=== PATIENT | female | born 1975 | race African-American/Black ===

== ENCOUNTER 2019-03-23 15:14 | Inpatient (IN) | payer OTHER ==
[~2019-03-23] VITALS: Ht 167.6 cm; Wt 52.3 kg
[~2019-03-23 15:14] MED LIST: ASPIR 8181 MG PO; ATIVAN1 MG PO; ATORVASTATIN CA40 MG PO; CARDIZEM CD240 MG PO; ELIQUIS5 MG PO; FEROSUL325 M1 PO; KEPPRA 500 MG500 M1 PO; KEPPRA250 MG PO; PRENATAL 19 TA1 EAC1 PO; VIMPAT50 MG PO; ZANAFLEX2 MG PO
[2019-03-23 15:16] VITALS: BP 132/83
[2019-03-23 16:00] LABS: HEMATOCRIT 49.6 % (37.0-47.0); HEMOGLOBIN 16.3 gm/dL (12.0-15.0); MCH 30.8 pg (26.0-34.0); MCHC 32.9 g/dL (28.0-37.0); MCV 93.6 fL (80.0-100.0); RBC 5.3 mil/uL (4.20-5.00); RDW 14.1 % (10.5-14.5); WBC 7.7 thou/uL (4.0-11.0)
[2019-03-23 16:06] LABS: ANION GAP 12 mmol/L (7-16); BUN 11 mg/dL (7-18); CALCIUM 9.9 mg/dL (8.5-10.1); CHLORIDE 103 mmol/L (98-107); CO2 26 mmol/L (21-32); CREATININE 0.8 mg/dL (0.6-1.0); GLUCOSE 147 mg/dL (74-106); POTASSIUM 4.1 mmol/L (3.5-5.1); SODIUM 141 mmol/L (136-145)
[2019-03-23] MEDS ORDERED: KEPPRA 500 MG500 MG PO (16:12)
[2019-03-23 16:13] LABS: APTT 27.8 Seconds (24.5-32.8); INR 1.4; PROTIME 14.2 Seconds (9.3-11.4)
[2019-03-23 16:14] LABS: TROPONIN-I <0.06 ng/mL (<0.06)
[2019-03-23 16:53] LABS: URINE BILIRUBIN NEGATIVE (Negative); URINE BLOOD NEGATIVE (Negative); URINE CLARITY CLEAR; URINE COLOR YELLOW; URINE GLUCOSE-RANDOM* NEGATIVE (Negative); URINE KETONES 1+ (Negative); URINE LEUKOCYTES-REFLEX NEGATIVE (Negative); URINE NITRITE-REFLEX NEGATIVE (Negative); URINE PROTEIN (DIPSTICK) 2+ (Negative); URINE SPECIFIC GRAVITY >= 1.030 (1.005-1.035); URINE UROBILINOGEN 0.2 E.U./dl (0.2-1.0)
[2019-03-23 17:04] LABS: BACTERIA-REFLEX None Seen /HPF (None Seen); CASTS None Seen /LPF (None Seen); CRYSTALS None Seen /LPF (None Seen); MUCUS 4-6 Moderate strn/LPF (None Seen); SQUAMOUS 0-3 Few /LPF (0-3); URINE RBC 0-2 Rare /HPF (0-2); URINE WBC-REFLEX 0-5 Rare /HPF (0-5)
[2019-03-23 18:23] VITALS: BP 114/78
[2019-03-23] MEDS ORDERED: VIMPAT150 MG PO (18:23)
[2019-03-23] MEDS ORDERED: NEURONTIN 300M300 M2 PO (18:34)
[2019-03-23] MEDS ORDERED: LEXAPRO 10 MG T10 M1 PO (18:35)
[2019-03-23] MEDS ORDERED: CLARITIN10 MG PO (18:35)
[2019-03-23] MEDS ORDERED: BACLOFEN 10MG T10 MG PO (18:36)
[2019-03-23 19:15] VITALS: BP 114/78
[2019-03-23 20:55] VITALS: BP 132/94
[2019-03-24] VITALS (7 sets, daily range): BP systolic 108–132; BP diastolic 68–94
--- NOTE | 2019-03-24 00:07 | H ---
[facility] Lilly [place]ins [place] [place] [address] HISTORY AND PHYSICAL Name: VANDANA HERNANDEZ Room #: 214-P ADM IN M.R.#: [id number] Admission: 03/23/19 Attend Phys: Rancho Stacy MD Discharge: Date of : 71 Report #: [id number] THIS REPORT FOR: //name// CC: Rancho Vogel MD DATE OF SERVICE: 03/23/2019 CHIEF COMPLAINT: Seizures. HISTORY OF PRESENT ILLNESS: The patient is a 43-year-old -[place]atorial [place] female who resides at [facility], whose nurse contacted me today that the patient was having seizures multiple times today. Apparently, she was out of the facility during the holiday and was given medications to take while she was outside the facility and refused to take them. Upon her return, she continued refusing to take her anti-seizure medications and thus the problem worsened. The patient is not able to appropriately reply to any questions and the information obtained was from my conversation with the nurse at the [facility] and in reviewing Dr. Escoto's notes and my conversation with him from the Emergency Room. 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 It appears she may have a history of atrial fibrillation or supraventricular tachycardia and is anticoagulated with Eliquis at this time. MEDICATIONS: Include diltiazem, Vimpat, Eliquis, atorvastatin, vitamins, tizanidine, Keppra, Neurontin, Lexapro, loratadine and baclofen. ALLERGIES: She has no known drug allergies. FAMILY HISTORY: Not obtainable. SOCIAL HISTORY: Also unobtainable except that the patient lives at the [facility] and she has no known vices. REVIEW OF SYSTEMS: Also unobtainable. PHYSICAL EXAMINATION: VITAL SIGNS: In the Emergency Room on arrival show a pulse of 105 beats per minute, temperature of 35.9 degrees centigrade, respirations of 16 per minute on 15 liters per face shield and a pulse oximetry of 87% on arrival. The weight was 110 pounds. GENERAL: The patient on exam is a well-developed, short haired and youthful appearing -[place] female who is not in distress, but is unable to speak [place] [id number] HISTORY AND PHYSICAL Name: VANDANA HERNANDEZ Room #: 214-P [facility] IN M.R.#: [id number] Admission: 03/23/19 Attend Phys: Rancho Stacy MD Discharge: Date of : 71 Report #: [id number] with me. She is able to flutter her eyelids when I requested that she open her eyes. During exam, she actually showed signs that she might be having a petit mal seizure. SKIN: Appears intact. There is no breakdown on the heels from the back. HEENT: The sinuses did not appear tender and hearing appears to be at least partially intact. Oropharynx is dry and pink. No lesions, no exudates. NECK: Without adenopathy or thyromegaly or mass. LUNGS: Clear to auscultation bilaterally. CARDIAC: Reveals tachycardia. ABDOMEN: Soft. Bowel sounds are present and there is no visceromegaly or masses. NEUROLOGIC: She has better than 4+/5 strength in general except for the left side which is quite weak, but not flaccid. On examination of the eyes, she has a leftward gaze deviation. MENTAL STATUS: Could not otherwise be assessed except to note that she responds to her spoken name and commands, but does not maintain wakefulness very well. LABORATORY DATA: EKG shows atrial fibrillation with rapid ventricular response and this is a new finding compared to prior EKG from 12/2017. The basic metabolic panel shows sodium 141, potassium 4.1, chloride of 103, bicarbonate 26, BUN of 11, creatinine 0.8. The anion gap is 12 and normal. The estimated GFR is 94 and the nonfasting glucose is 147. The calcium was 9.9 and the magnesium was 1.6 and low. The serum test was negative. Lactic acid level, venous, was elevated at 2.8, with an upper limits of normal at 2.0. Troponin was less than 0.06. The coagulation studies showed an INR of 1.4, although she is on Eliquis, not on Coumadin. The partial thromboplastin time was normal at 27.8. CBC showed a white blood cell count of 7700, platelet count of 288,000, hemoglobin was 16.3 with hematocrit 49.6 and the red cell indices were normal. Chest x-ray was performed in the Emergency Room, showed basilar infiltrations with consolidation on the left and small bilateral pleural effusions and borderline heart size with possible pulmonary venous congestion. CT scan of the head was done that showed no acute intracranial abnormality and the presence of an old right middle cerebral artery infarction is once again noted. The patient was given intravenous lorazepam as IV fluids and Keppra in the Emergency Room. She was also given intravenous magnesium replacement and after discussing the case with Dr. Escoto, I agreed with admission of the patient for further evaluation and treatment and observation while we reorganize her medications. ASSESSMENT AND PLAN: 1. Recurrent seizures, most likely due to medication noncompliance. I am not sure of the importance of noncompliance long-term this patient. However, her usual primary care physician, Dr. Vogel, will be back tomorrow to continue her care. 2. Atrial fibrillation with rapid ventricular response. I will put the patient [facility] [address] [place] [address] HISTORY AND PHYSICAL Name: VANDANA HERNANDEZ Room #: 214-P ADM IN M.R.#: [id number] Admission: 03/23/19 Attend Phys: Rancho Stacy MD Discharge: Date of : 71 Report #: [id number] on a diltiazem drip tonight and will get a followup EKG and echocardiogram in the morning and serial enzymes to rule out infarction. She may have other reasons for the tachycardia and look at underlying causes is definitely indicated. 3. Possible pneumonia if present likely due to aspiration. We will get a followup chest x-ray in the morning as well. I have reviewed the admission x-ray and will be adding an intravenous antibiotic to start tonight and cultures as well. 4. Thyrotoxicosis history -- the patient had suppressed TSH several times in the last few years when hospitalized at [facility]. This could certainly bear relation to atrial fibrillation if present. I will obtain TSH and free T4. I note that the patient is not on any thyroid hormone replacement therapy, but I am suspicious that she might benefit from treatment of her thyroid issues if they persist, with Tapazole or PTU. I will defer to Dr. Vogel the workup, if needed and would await the thyroid functions test results before proceeding further with ultrasound and/or thyroid scan. Propranolol may be useful if thyroid storm is suspected. 5. Hyperlipidemia. Continue current medications. 6. Depression -- Lexapro therapy. We will continue that. <ELECTRONICALLY SIGNED> By: Rancho Stacy MD 03/24/197 2308 Rancho Stacy MD /nt
[2019-03-24 04:09] LABS: HEMATOCRIT 46.1 % (37.0-47.0); HEMOGLOBIN 14.8 gm/dL (12.0-15.0); MCH 30.2 pg (26.0-34.0); MCHC 32.1 g/dL (28.0-37.0); MCV 93.9 fL (80.0-100.0); RBC 4.91 mil/uL (4.20-5.00); WBC 12.7 thou/uL (4.0-11.0)
[2019-03-24 04:33] LABS: CALCIUM 9.7 mg/dL (8.5-10.1); CREATININE 0.9 mg/dL (0.6-1.0); POTASSIUM 4.1 mmol/L (3.5-5.1); TROPONIN-I 0.06 ng/mL (<0.06)
--- NOTE | 2019-03-24 05:48 | NUR ---
ASSUMED PT CARE FROM ER AT 1999. VSS, PT WAS QUITE LETHARGIC. HOWEVER, MENTATION SLIGHTLY IMPROVED THROUGH THE NIGHT SHE BECAME MORE AWAKE, AND FOLLOWED SIMPLE COMMANDS AT TIMES. PT EVIDENTLY HAS EXPRESIVE APHASIA, IT WAS A LITTLE CHALLENGING UNDERSTANDING HER. PT IS REQUESTING ICE WATER BUT THERE ARE NO DIET ORDERS YET OR SWALLOW EVALS DONE SO NONE WAS GIVEN HOWEVER PT IS ON IV FUIDS. FALL PRECAUTIONS IN PLACE. PT IN BED Q2 TURNS ALLOWED, PT ON CARDIZEM 15ML/HR, RATE CONTROLLED NOW (<100). PT IS STABLE, WILL CONTINUE TO MONITOR PER POC.
--- NOTE | 2019-03-24 08:13 | EKG ---
[address] [address] ELECTROCARDIOGRAM REPORT Name: VANDANA HERNANDEZ Room #: 214-P ADM IN M.R.#: [id number] Admission: 03/23/19 Attend Phys: Rancho Stacy MD Discharge: Date of : 71 Report #: [id number] THIS REPORT FOR: //name// [facility] ED Test Date: 2019-03-23 Test Time: 16:03:34 Pat Name: VANDANA HERNANDEZ Department: Room: 214 Gender: F Tar Pot Man: JSJAD : 1975 Requested By: Moris Everett Order Number: [id number] MD: Wade Jaramillo Measurements Intervals [place] Rate: 111 P: SD: QRS: 145 QRSD: 105 T: -5 QT: 352 QTc: 479 Interpretive Statements Atrial fibrillation Low voltage, precordial leads Probable right ventricular hypertrophy Lateral infarct, age indeterminate Compared to ECG 01/04/2018 07:51:11 Sinus rhythm no longer present First degree AV block no longer present Right-axis deviation no longer present Myocardial infarct finding still present Electronically Signed On 03-24-2019 8:13:16 ASBESTOS SHINGLE INSPECTOR by Wade Jaramillo [email or web address] <ELECTRONICALLY SIGNED> By: Wade Jaramillo MD 03/24/19 0813 1603 160 Wade Jaramillo MD /EPI
--- NOTE | 2019-03-24 15:45 | 2DMMODE ---
[facility] [address] [place] [address] 2 D/M-MODE ECHOCARDIOGRAM Name: VANDANA HERNANDEZ Room #: 214-P ADM IN .R.#: [id number] Admission: 03/23/19 Attend Phys: Rancho Stacy MD Discharge: Date of : 71 Report #: [id number] THIS REPORT FOR: //name// APPROVED REPORT Study performed: 03/24/2019 14:21:06 EXAM: Comprehensive 2D, Doppler, and color-flow Echocardiogram Patient Location: Bedside Room #: 214 Status: routine BSA: 1.55 HR: 80 bpm BP: 132/94 mmHg Rhythm: Atrial Fibrillation Other Information Study Quality: Adequate Indications Pulmonary Hypertension Atrial Fibrillation CAD Elevated Troponin ESRD Seizures 2D Dimensions IVSd: 13.81 (7-11mm) LVOT Diam: 15.00 (18-24mm) LVDd: 35.28 mm PWd: 16.41 (7-11mm) Ascending Ao: 24.58 (22-36mm) LVDs: 29.79 (25-40mm) Aortic Root: 22.98 mm LV Single Plane 4CH: 32.98 % LV Single Plane 2CH: 44.67 % Biplane EF: 38.0 % Volumes Left Atrial Volume (Systole) Single Plane 4CH: 60.40 mL Single Plane 2CH: 72.69 mL LA ESV Index: 49.00 mL/m2 Aortic Valve AoV Peak Uday.: 1.33 m/s AO Peak Gr.: 7.90 mmHg LVOT Max P.98 mmHg [facility] [address] [place] [address] 2 D/M-MODE ECHOCARDIOGRAM Name: VANDANA HERNANDEZ Room #: 214-P ADM IN .R.#: [id number] Admission: 03/23/19 Attend Phys: Rancho Stacy MD Discharge: Date of : 71 Report #: [id number] LVOT Max V: 0.70 m/s FIDE Vmax: 0.94 cm2 Pulmonary Valve PV Peak Uday.: 0.86 m/s PV Peak Gr.: 2.99 mmHg OK End Vmax: 1.54 m/s Tricuspid Valve TR Peak Uday.: 2.78 m/s RAP Estimate: 10.00 mmHg TR Peak Gr.: 30.81 mmHg PA Pressure: 41.00 mmHg Left Ventricle The left ventricle is normal size. There is global hypokinesis of the left ventricle. Moderate to severe concentric left ventricular hypertrophy. Left ventricular systolic function is moderately decreased. LVEF is 35-40%. This study is not technically sufficient to allow evaluation of the LV diastolic function due to atrial fibrillation. Right Ventricle The right ventricle is normal size. Right ventricle is hypokinetic. Atria Left atrium is severely dilated. Right atrium is severely dilated. Aortic Valve The aortic valve is normal in structure. No aortic regurgitation is present. There is no aortic valvular stenosis. Mitral Valve The mitral valve is normal in structure. Mild to moderate mitral regurgitation. No evidence of mitral valve stenosis. Tricuspid Valve The tricuspid valve is normal in structure. Moderate tricuspid regurgitation. Pulmonary artery pressure is 41 mmHg. Pulmonic Valve The pulmonary valve is normal in structure. Moderate pulmonic regurgitation. Great Vessels The aortic root is normal in size. The ascending aorta is normal in [facility] [address] [place] [address] 2 D/M-MODE ECHOCARDIOGRAM Name: VANDANA HERNANDEZ Room #: 214-P [facility] IN ..#: [id number] Admission: 03/23/19 Attend Phys: Rancho Stacy MD Discharge: Date of : 71 Report #: [id number] size. IVC is dilated and collapses >50% with inspiration. Pericardium Small to moderate pericardial effusion. No echo indications of pericardial tamponade. <Conclusion> The left ventricle is normal size. There is global hypokinesis of the left ventricle. LVEF is 35-40%. Left atrium is severely dilated. Right atrium is severely dilated. The aortic valve is normal in structure. The mitral valve is normal in structure. Mild to moderate mitral regurgitation. The tricuspid valve is normal in structure. Moderate tricuspid regurgitation. Pulmonary artery pressure is 41 mmHg. Small to moderate pericardial effusion. No echo indications of pericardial tamponade. <ELECTRONICALLY SIGNED> By: Troy Newton MD 03/24/19 1545 1545 1545 Troy Newton MD /INF
--- NOTE | 2019-03-24 19:33 | NUR ---
ASSUMED CARE AT 0700, SHIFT ASSESSMENT DONE, MEDS GIVEN, VSS. PT A&O TO SELF, EXPRESSIVE APHASIA. INCONTINENT OF BOWEL AND BLADDER. ON DILTIAZEM DRIP, RUNNING AT 10 MLS/HR. HAD A SPEECH EVAL TODAY, STARTED ON PUREED DIET. AFIB, RATE CONTROLLED ON THE MONITOR. WILL CONTINUE TO ASSESS AND ASSIST WITH ADLs NEEDED.
[2019-03-25 04:36] LABS: HEMATOCRIT 42.7 % (37.0-47.0); HEMOGLOBIN 14.3 gm/dL (12.0-15.0); MCH 31.2 pg (26.0-34.0); MCHC 33.4 g/dL (28.0-37.0); MCV 93.3 fL (80.0-100.0); RBC 4.58 mil/uL (4.20-5.00); WBC 10.2 thou/uL (4.0-11.0)
[2019-03-25 05:39] VITALS: BP 111/84
--- NOTE | 2019-03-25 05:49 | NUR ---
ASSESSMENTS CHARTED. MEDS GIVEN CHARTED. PATIENT RESTING IN BED DURING SHIFT. A CLOSE FRIEND WAS FEEDING HER DURING ROUNDS. PATIENT HAS EXPRESSIVE APHASIA. AFIB ON TELEMETRY DURING SHIFT. LUNGS STARTED CLEAR OVER DIMINISHED. DURING SHIFT HER LUNGS BECAME COARSE AND SHE HAD TROUBLE BREATHING. HER IV FLUIDS WERE STOPPED AND LASIX WAS GIVEN. CXR WAS TAKEN. DUE TO VIDEO SWALLOW RESULTS SHE WAS PUT ON A PUREED DIET WITH NECTUR THICK FLUIDS. PATIENT GETS AROUND IN A WHEEL CHAIR NORMALLY WHEN SHE IS AT [facility]. NO SKIN ISSUES. DENIED PAIN.
[2019-03-25 08:06] VITALS: BP 119/83
--- NOTE | 2019-03-25 08:41 | EKG ---
[address] [address] ELECTROCARDIOGRAM REPORT Name: DAVIDVANDANA Room #: 214-P ADM IN M.R.#: [id number] Admission: 03/23/19 Attend Phys: Ck Vogel MD Discharge: Date of : 71 Report #: [id number] THIS REPORT FOR: //name// [facility] Test Date: 2019-03-24 Test Time: 09:19:19 Pat Name: VANDANA HERNANDEZ Department: Room: 214 P Gender: F Liquefaction And Regasification Helper: Crispin GLASS : 1975 Requested By: Rancho Stacy Order Number: [id number] MD: Wade Jaramillo Measurements Intervals [place] Rate: 93 P: VA: QRS: 137 QRSD: 83 T: -59 QT: 417 QTc: 519 Interpretive Statements Atrial fibrillation Low voltage, extremity leads Probable right ventricular hypertrophy Abnormal lateral Q waves Compared to ECG 03/23/2019 16:03:34 Q waves now present Myocardial infarct finding no longer present Electronically Signed On 03-25-2019 8:41:27 GEOLOGICAL TECHNICAL OFFICER by Wade Jaramillo [email or web address] <ELECTRONICALLY SIGNED> By: Wade Jaramillo MD 03/25/19 0841 8 8 Wade Jaramillo MD /EPI
--- NOTE | 2019-03-25 10:43 | NUR ---
PT RESIDES AT [facility] FAXED CLINICAL UPDATE TO FACILITY RECEIVED CONFIRMATION ADN SPOKE WITH KAIN AND SHE RECEIVED UPDATE. DP TO FOLLOW.
[2019-03-25 11:44] VITALS: BP 134/87
--- NOTE | 2019-03-25 13:15 | NUR ---
Spoke with admissions at [facility]. Sp with dtr [place] Do, plan dc to [facility] once medically stable. Dtrs number [phone]. [email or web address] following with plan return to [facility] once stable.
[2019-03-25 17:07] VITALS: BP 132/88
--- NOTE | 2019-03-25 18:54 | NUR ---
ASSUMED CARE 0700. ALERT X3, DENIES PAIN, EXPRESIVE DISPHASIA, SET UP WITH MEALS. PILLS GIVEN WITH YOGURT OR PUDDING. INCONTNENT OF BOWEL AND BLADDER TODAY. HAS NOT USED CALL LIGHT THIS SHIFT. STAFF TO ANTICIPATE NEEDS. BED LOCKED AND LOW POSITION. CALL LIGHT AND PHONE NEXT PATIENT.
[2019-03-25 19:51] VITALS: BP 123/53
[2019-03-26 05:25] VITALS: BP 123/53
[2019-03-26 08:10] VITALS: BP 123/89
--- NOTE | 2019-03-26 09:03 | NUR ---
pt resting on and off in room, repositioned q 2 hrs and as needed, no c/o pain, vss, meds given with pudding, incon't of bladder several times per shift, tolerating diet, will con't to monitor per ppoc.
[2019-03-26 11:30] VITALS: BP 97/61
--- NOTE | 2019-03-26 17:04 | NUR ---
ASSUMED CARE 0700. ALERT X3, DENIES PAIN, EXPRESSIVE APHAGIA ABLE TO VOICE HER NEEDS. TOLERATING NECOTOR THICKENED AND PUREED DIET. SELF TURNS FOR CARE WHEN INCOTINENT. PROGRESSING TOWARDS GOALS. LIKE DC TOMORROW BACK TO LTC. FALL PRECAUTIONS IN PLACE WITH CALL LIGHT AND PHONE IN REACH.
[2019-03-26] MEDS ORDERED: CEFUROXIME250 MG PO (17:11)
[2019-03-26] MEDS ORDERED: MAGNESIUM400 MG PO (17:13)
[2019-03-26] MEDS ORDERED: AFLURIA QU IM (17:13)
[2019-03-26 17:30] VITALS: BP 133/92
[2019-03-26 19:54] VITALS: BP 137/88
[2019-03-27 04:07] VITALS: BP 122/71
--- NOTE | 2019-03-27 06:26 | NUR ---
ASSUMED CARE OF PATIENT AT 1900. VSS, AFEBRILE. REQUESTING TO BE UP IN WHEELCHAIR. ASSISTED INTO WHEELCHAIR, SEVERAL TIMES AROUND THE UNIT WITH AID. SLEEPING WELL THROUGH THE NIGHT. DENIES PAIN, SOA OR N/V. PROGRESSING TOWARDS POC GOALS.
[2019-03-27 08:00] VITALS: BP 109/81
[2019-03-27 12:00] VITALS: BP 111/73
[2019-03-27 13:12] VITALS: BP 111/73
--- NOTE | 2019-03-27 16:13 | NUR ---
Pt dcing back to ltc at [facility] this afternoon. DC habitat conservation planner to updated care team and dtr with the w/c van transport time. F/u ST recommended with new diet of mech soft with thickened liquids. Chart copy and orders are ready to be sent with the pt. Nursing to call report. Pt and family aware of dc back to the [facility] today and family was here to visit.
--- NOTE | 2019-03-27 16:30 | NUR ---
PT DISCHARGING TODAY TO [facility] FAXED DC ORDERS/SUMMARY TO FACILITY SPOKE WITH KAIN IN ADM SHE RECEIVED DC ORDERS AND ARRANGED TRANSPORT BY [facility] FOR 1730 TODAY, NOTIFIED PT'S DPOA OF DC AND TIME OF TRANSPORT. UNIT NOTIFIED AND CHART COPY PER US. RN TO CALL REPORT TO [phone].
--- NOTE | 2019-03-27 17:36 | NUR ---
ASSUMED CARE PT SHIFT CHANGE. ASSESSMENTS CHARTED. MEDS GIVEN PER JUN. PT ALERT AND ORIENTED, VSS, DENIES CP, SOB. O2 SATS WNL ON ROOM AIR. SEEN BY SPEECH- HAD SOFT FOOD TRIAL, ACCORDING TO SPEECH WAS SUCCESSFUL. NO SIGNS OF CHOKING/ASPIRATION. DC ORDERS ACKNOWLEDGED AND IMPLEMENTED. IV REMOVED TELE REMOVED. PT LEFT UNIT PER VAN AT APPROX 1733 WITH ALL BELONGINGS.
--- NOTE | 2019-03-27 17:41 | NUR ---
ATTEMPTED TO CALL REPORT TO [facility] TWO TIMES. THE SECOND TIME THE PATIENT ASSESSMENT COORDINATOR SAID THE NURSE WILL RETURN MY CALL FOR REPORT WHEN SHE CAN.
== END 2019-03-27 17:45 | DRG 100 ==
LOC: ER 15:14 → EROBS 18:17 → 2N 18:17
PROVIDERS: Emergency Medicine; Internal Medicine; ADMIT Internal Medicine
DX: G40.909 Epilepsy, unspecified, not intractable, without status epilepticus (principal); J69.0 Pneumonitis due to inhalation of food and vomit; I69.354 Hemiplegia and hemiparesis following cerebral infarction affecting left non-dominant side; I48.91 Unspecified atrial fibrillation; E78.5 Hyperlipidemia, unspecified; F32.9 Major depressive disorder, single episode, unspecified; E87.70 Fluid overload, unspecified; I10 Essential (primary) hypertension; Z91.14 Patient's other noncompliance with medication regimen; Z28.21 Immunization not carried out because of patient refusal
CPT/HCPCS: 10081

== ENCOUNTER 2020-03-27 17:56 | Emergency (ER) | payer OTHER ==
[~2020-03-27] VITALS: Ht 154.9 cm; Wt 45.4 kg
--- NOTE | ~2020-03-27 | EMS ---
[address] [address] EMS Patient Care Report Name: VANDANA HERNANDEZ Room #: REG GUILLAUME Whitlock#: [id number] Admission: 03/27/20 Attend Phys: Discharge: Date of : 71 Report #: [id number] THIS REPORT FOR: //name// Report Transmitted: 03/27/2020 19:04 EMS Care Summary [place], [place]/[facility] Incident [phone] @ 03/27/2020 17:29 Incident Location [facility] [place] A11-1 Patient VANDANA HERNANDEZ Female, 44 Years 1975 Patient Address Patient History Stroke/CVA,Constipation,Dysphagia, Patient Allergies No known allergies, Patient Medications Acetaminophen, Chief Complaint N/V X5 Disposition Transported No Lights/[place] Reason Sick Person Transported To [facility] Narrative RESPONDED TO SKILLED NURSING FOR SICK. UPON ARRIVAL PT FOUND IN WHEELCHAIR ALERT AND ORIENTED, CONDITION BASELINE. [facility] STAFF REPORT PT HAS N/V X5 TODAY. [facility] STAFF DENY ANY BLOODY EMESIS AND REPORT NORMAL BM LATELY. PT TEAM LIFTED TO COT. VITALS OBTAINED. PT TRANSPORTED TO [facility]. PT TEAM LIFTED TO BED AND HANDRAILS UP. REPORT GIVEN TO NURSE. [address] [address] EMS Patient Care Report Name: VANDANA HERNANDEZ Room #: REG GUILLAUME Whitlock#: [id number] Admission: 03/27/20 Attend Phys: Discharge: Date of : 71 Report #: [id number] Initial Vitals @18:08P: 56,R: 18,BP: 110/70,Pain: 0/10,GCS: 15,SpO2: 99,Revised Trauma: 12, Assessments @17:43MENTAL:Person Oriented,Time Oriented,Place Oriented,Event Oriented,SKIN:HEENT:Head/Face: No Abnormalities,Eyes: No Abnormalities,Neck/Airway: No Abnormalities,LUNG SOUNDS:General: Vomiting,General: Nausea,Left Upper: No Abnormalities,Right Upper: No Abnormalities,Left Lower: No Abnormalities,Right Lower: No Abnormalities,ABDOMEN:General: Vomiting,General: Nausea,Left Upper: No Abnormalities,Right Upper: No Abnormalities,Left Lower: No Abnormalities,Right Lower: No Abnormalities,PELVIS//GI:Incontinence,EXTREMITIES:Left Leg: Weakness,Right Arm: Weakness,Right Leg: Weakness,Left Arm: Weakness,PULSE:NEURO:Slurred Speech,@17:50MENTAL:Person Oriented,Place Oriented,Time Oriented,Event Oriented,SKIN:HEENT:Head/Face: No Abnormalities,Eyes: No Abnormalities,Neck/Airway: No Abnormalities,LUNG SOUNDS:General: Nausea,Left Upper: No Abnormalities,Right Upper: No Abnormalities,Left Lower: No Abnormalities,Right Lower: No Abnormalities,ABDOMEN:General: Nausea,Left Upper: No Abnormalities,Right Upper: No Abnormalities,Left Lower: No Abnormalities,Right Lower: No Abnormalities,PELVIS//GI:Incontinence,EXTREMITIES:Right Arm: Weakness,Left Leg: Weakness,Left Arm: Weakness,Right Leg: Weakness,PULSE:NEURO:Slurred Speech, Impression Nausea Procedures @17:43ALS AssessmentResponse: UnchangedSucceeded Timeline 17:28,Call Received 17:28,Dispatch Notified 17:29,Dispatched 17:31,En Route 17:39,On Scene 17:43,At Patient 17:43,ALS Assessment,Response: UnchangedSucceeded, 17:50,Depart Scene 17:53,At Destination 18:08,BP: 110/70 M,PULSE: 56,RR: 18 R,SPO2: 99 Ox,ETCO2: ,BG: ,PAIN: 0,GCS: 15, 18:13,Call Closed Disclaimer v1.1 Copyright 2020 [employer] This EMS Care Summary contains data elements from the applicable legal record [address] [address] EMS Patient Care Report Name: VANDANA HERNANDEZ Room #: REG Kamlesh#: [id number] Admission: 03/27/20 Attend Phys: Discharge: Date of : 71 Report #: [id number] (which may be displayed differently). It is designed to provide pertinent information for the following purposes: continuity of care, clinical quality, and state data reporting. The complete legal record is available to ED staff and administrators of the receiving hospital in [email or web address]'s Patient Tracker. All data is provided "as is."
[~2020-03-27 17:56] MED LIST changes: +AFLURIA QU IM; +BACLOFEN 10MG T10 MG PO; +CEFUROXIME250 MG PO; +CLARITIN10 MG PO; +KEPPRA 500 MG500 MG PO; +LEXAPRO 10 MG T10 M1 PO; +MAGNESIUM400 MG PO; +NEURONTIN 300M300 M2 PO; +VIMPAT150 MG PO
[2020-03-27] MEDS ORDERED: LORAZEPAM 0.50.5 MG PO (19:16)
[2020-03-27] MEDS ORDERED: DIVALPROEX SOD125 MG PO (19:16)
[2020-03-27] MEDS ORDERED: ASPIRIN EC81 M1 PO (19:20)
[2020-03-27] MEDS ORDERED: FUROSEMIDE 20 M20 M1 PO (19:22)
[2020-03-27] MEDS ORDERED: KEPPRA 500 MG500 M1 PO (19:22)
[2020-03-27] MEDS ORDERED: LISINOPRIL10 MG PO (19:23)
[2020-03-27] MEDS ORDERED: SIMVASTATIN80 MG PO (19:26)
[2020-03-27] MEDS ORDERED: ENBRACE HR SOF1 EACH PO (19:26)
[2020-03-27 19:27] LABS: ABSOLUTE NEUTROPHILS 3.6 thou/uL (1.4-8.2); BASOPHILS 0.8 % (0.0-2.0); EOSINOPHILS 0.2 % (0.0-3.0); HEMATOCRIT 54.5 % (37.0-47.0); HEMOGLOBIN 18.4 gm/dL (12.0-15.0); LYMPHOCYTES 22.1 % (24.0-44.0); MCH 31.1 pg (26.0-34.0); MCHC 33.8 g/dL (28.0-37.0); MCV 92.1 fL (80.0-100.0); PLATELET COUNT 304 thou/uL (150-400); POLYS 64.9 % (36.0-66.0); RBC 5.92 mil/uL (4.20-5.00); RDW 13.2 % (10.5-14.5); WBC 5.6 thou/uL (4.0-11.0)
[2020-03-27 19:33] LABS: CREATININE 1.2 mg/dL (0.6-1.0); POTASSIUM 5.1 mmol/L (3.5-5.1)
[2020-03-27 19:34] LABS: MAGNESIUM 2.5 mg/dL (1.8-2.4)
[2020-03-27 19:59] LABS: URINE BILIRUBIN NEGATIVE (Negative); URINE BLOOD NEGATIVE (Negative); URINE CLARITY CLEAR; URINE COLOR YELLOW; URINE GLUCOSE-RANDOM* NEGATIVE (Negative); URINE KETONES NEGATIVE (Negative); URINE LEUKOCYTES-REFLEX NEGATIVE (Negative); URINE NITRITE-REFLEX NEGATIVE (Negative); URINE PROTEIN (DIPSTICK) NEGATIVE (Negative); URINE SPECIFIC GRAVITY 1.025 (1.005-1.035); URINE UROBILINOGEN 0.2 E.U./dl (0.2-1.0)
[2020-03-27] MEDS ORDERED: ZOFRAN ODT4 MG PO (20:34)
[2020-03-27 21:40] VITALS: BP 115/88
--- NOTE | 2020-03-28 09:56 | EKG ---
[facility] [place] [address] ELECTROCARDIOGRAM REPORT Name: VANDANA HERNANDEZ Room #: DEP [facility]#: [id number] Admission: 03/27/20 Attend Phys: Discharge: 03/27/20 Date of : 71 Report #: [id number] THIS REPORT FOR: cc: Ck Vogel MD, Ramilo MD Lundgren,Benito Petersen MD [facility] ~ THIS REPORT FOR: //name// [facility] ED Test Date: 2020-03-27 Test Time: 19:35:11 Pat Name: VANDANA HERNANDEZ Department: Room: Gender: Bending Machine Set Up Operator: [facility] : 1975 Requested By: Charles Stinson Order Number: [id number] MD: Benito Mcbride Measurements Intervals [place] Rate: 82 P: [place]: QRS: 150 QRSD: 113 T: 63 QT: 415 QTc: 485 Interpretive Statements Atrial fibrillation IRBBB and LPFB Anterior infarct, old Compared to ECG 03/24/2019 09:19:19 No significant change was found Electronically Signed On 03-28-2020 9:55:51 SEAMER by Benito Mcbride [email or web address] <ELECTRONICALLY SIGNED> By: Benito Mcbride MD, FAC 03/28/20 0955 34 34 Benito Mcbride MD, [facility] /EPI
== END 2020-03-27 21:40 | disposition home or self-care (01) ==
LOC: ER 17:56
PROVIDERS: Emergency Medicine
DX: U07.1 COVID-19 (principal); R11.2 Nausea with vomiting, unspecified; I48.91 Unspecified atrial fibrillation; E78.5 Hyperlipidemia, unspecified; I10 Essential (primary) hypertension; F32.9 Major depressive disorder, single episode, unspecified; Z86.73 Personal history of transient ischemic attack (TIA), and cerebral infarction without residual deficits; Z79.899 Other long term (current) drug therapy; Z79.82 Long term (current) use of aspirin

== ENCOUNTER 2020-04-22 12:12 | Emergency (ER) | payer OTHER ==
[~2020-04-22] VITALS: Ht 162.6 cm; Wt 49.9 kg
[~2020-04-22 12:12] MED LIST changes: +ASPIRIN EC81 M1 PO; +DIVALPROEX SOD125 MG PO; +ENBRACE HR SOF1 EACH PO; +FUROSEMIDE 20 M20 M1 PO; +LISINOPRIL10 MG PO; +LORAZEPAM 0.50.5 MG PO; +SIMVASTATIN80 MG PO; +ZOFRAN ODT4 MG PO
[2020-04-22 21:54] VITALS: BP 104/52
--- NOTE | 2020-04-23 15:15 | EKG ---
[place] [address] [facility] [place] [address] ELECTROCARDIOGRAM REPORT Name: VANDANA HERNANDEZ [facility] [id number] Admission: 04/22/20 Attend Phys: Discharge: 04/22/20 Date of : 71 Report #: [id number] [facility] ED Test Date: 2020-04-22 Test Time: 16:35:11 Pat Name: VANDANA HERNANDEZ Department: Room: Gender: F Service Developer: JUDY : 1975 Requested By: Mark Robles Order Number: [id number] MD: Benito Mcbride Measurements Intervals [place] Rate: 69 P: 14 UT: 147 QRS: -169 QRSD: 115 T: 87 QT: 436 QTc: 467 Interpretive Statements Atrial fibrillation Incomplete right bundle branch block Anteroseptal infarct, old Inferior infarct, old Compared to ECG 03/27/2020 19:35:11 No significant change was found Electronically Signed On 04-23-2020 15:14:58 CDA TEACHER by Benito Mcbride [email or web address] <ELECTRONICALLY SIGNED> By: Benito Mcbride MD, [facility] 04/23/20 1514 1635 34 Benito Mcbride MD, FACC /EPI
== END 2020-04-22 21:56 | disposition home or self-care (01) ==
LOC: ER 12:12
DX: S00.83XA Contusion of other part of head, initial encounter (principal); I10 Essential (primary) hypertension; E78.5 Hyperlipidemia, unspecified; I48.91 Unspecified atrial fibrillation; Z86.2 Personal history of diseases of the blood and blood-forming organs and certain disorders involving the immune mechanism; Z79.899 Other long term (current) drug therapy; W18.39XA Other fall on same level, initial encounter; Y93.89 Activity, other specified; Y92.89 Other specified places as the place of occurrence of the external cause; Y99.8 Other external cause status

== ENCOUNTER 2020-04-24 16:56 | Inpatient (IN) | payer OTHER ==
[~2020-04-24] VITALS: Ht 167.6 cm; Wt 51.3 kg
[2020-04-24 16:58] VITALS: BP 106/70
[2020-04-24] MEDS ORDERED: ASCORBIC ACID500 MG PO (17:03)
--- NOTE | 2020-04-24 17:32 | NUR ---
SPOKE WITH THE PRINCIPAL TECHNICAL WRITER NBA AT THE PT'S FACILITY. SHE STATED THAT THE PT'S BASELINE IS SPEAKING, IS ABLE TO TELL STAFF WHAT SHE NEEDS, AND TYPICALLY IS "ALL OVER THE PLACE, OUT OF HER ROOM, AND NEEDS TO BE REDIRECTED BACK TO HER ROOM OFTEN."
[2020-04-24 17:58] LABS: EOSINOPHILS 0.1 % (0.0-3.0); MCH 31.1 pg (26.0-34.0)
[2020-04-24 18:00] LABS: ABSOLUTE NEUTROPHILS 5.3 thou/uL (1.4-8.2); BASOPHILS 0.4 % (0.0-2.0); HEMATOCRIT 54.8 % (37.0-47.0); HEMOGLOBIN 18.6 gm/dL (12.0-15.0); MCHC 33.8 g/dL (28.0-37.0); MONOCYTES 10.5 % (1.0-8.0); PLATELET COUNT 322 thou/uL (150-400); RBC 5.96 mil/uL (4.20-5.00); RDW 13.2 % (10.5-14.5); WBC 7.9 thou/uL (4.0-11.0)
[2020-04-24 18:04] LABS: URINE BILIRUBIN NEGATIVE (Negative); URINE BLOOD NEGATIVE (Negative); URINE CLARITY CLEAR; URINE COLOR YELLOW; URINE GLUCOSE-RANDOM* NEGATIVE (Negative); URINE KETONES NEGATIVE (Negative); URINE LEUKOCYTES-REFLEX NEGATIVE (Negative); URINE NITRITE-REFLEX NEGATIVE (Negative); URINE PROTEIN (DIPSTICK) NEGATIVE (Negative); URINE SPECIFIC GRAVITY 1.025 (1.005-1.035)
[2020-04-24 18:17] LABS: CREATININE 1.3 mg/dL (0.6-1.0); POTASSIUM 5.4 mmol/L (3.5-5.1)
[2020-04-24 18:24] LABS: ALBUMIN 3.7 g/dL (3.4-5.0); TOTAL BILIRUBIN 1.1 mg/dL (0.2-1.0); TOTAL PROTEIN 8.9 g/dL (6.4-8.2); TROPONIN-I 0.14 ng/mL (<0.06)
[2020-04-24] MEDS ORDERED: ZOCOR 10 MG TAB10 MG PO (20:26)
[2020-04-25 02:05] VITALS: BP 93/60
[2020-04-25 06:29] LABS: HEMATOCRIT 48.9 % (37.0-47.0); MCH 30.8 pg (26.0-34.0); MCHC 33.2 g/dL (28.0-37.0); MCV 92.7 fL (80.0-100.0); RBC 5.28 mil/uL (4.20-5.00); RDW 13.3 % (10.5-14.5); WBC 8.4 thou/uL (4.0-11.0)
[2020-04-25 06:31] LABS: HEMOGLOBIN 16.3 gm/dL (12.0-15.0)
[2020-04-25 06:49] LABS: ANION GAP 11 mmol/L (7-16); BUN 39 mg/dL (7-18); CALCIUM 9.2 mg/dL (8.5-10.1); CHLORIDE 104 mmol/L (98-107); CHOLESTEROL 172 mg/dL (<200); CO2 27 mmol/L (21-32); GLUCOSE 93 mg/dL (74-106); HDL CHOLESTEROL 36 mg/dL (>40); LDL CHOLESTEROL 119 mg/dL (<100); SODIUM 142 mmol/L (136-145); TC:HDL 4.8 Ratio (Not establshd); TRIGLYCERIDE 87 mg/dL (<150); VLDL 17 mg/dL (<40)
[2020-04-25 06:59] LABS: POTASSIUM 4.5 mmol/L (3.5-5.1)
--- NOTE | 2020-04-25 09:32 | EKG ---
[address] [address] ELECTROCARDIOGRAM REPORT Name: VANDANA HERNANDEZ Room #: 170-2 ADM IN M.R.#: [id number] Admission: 04/24/20 Attend Phys: Jessica Li Discharge: Date of : 71 Report #: [id number] 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 : 1975 Requested By: Lili Belle Order Number: [id number] MD: Wade Jaramillo Measurements Intervals [place] Rate: 80 P: ND: QRS: 231 QRSD: 104 T: -74 QT: 329 QTc: 380 Interpretive Statements Atrial fibrillation Probable right ventricular hypertrophy Inferior infarct, age indeterminate Anterolateral infarct, age indeterminate Compared to ECG 04/22/2020 16:35:11 Incomplete right bundle-branch block no longer present Myocardial infarct finding still present Electronically Signed On 04-25-2020 9:32:16 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
[2020-04-25 11:14] VITALS: BP 79/52
[2020-04-25 15:43] VITALS: BP 86/46
--- NOTE | 2020-04-25 15:52 | NUR ---
ADMIT NURSE IN ANOTHER ROOM CALL BACK IN 15
[2020-04-25 16:05] VITALS: BP 106/56
--- NOTE | 2020-04-25 17:25 | NUR ---
TO UNIT FROM Sonja, REPORT FROM IASAK GRACE.
[2020-04-25 17:50] VITALS: BP 90/70
[2020-04-25 19:43] VITALS: BP 113/73
[2020-04-26 00:05] LABS: HBsAG-EMPLOYEE EXPOSURE Negative (Negative); HCV AB-EMPLOYEE EXPOSURE <0.1 (0.0-0.9)
[2020-04-26 04:41] VITALS: BP 92/67
[2020-04-26 07:30] VITALS: BP 95/57
--- NOTE | 2020-04-26 07:43 | NUR ---
PT STATES SHE'S HUNGRY.TOOK HER PILLS WITH PUDDING AND DID WELL.MONITOR SHOWS AFIB.TURN Q2 HOURS.POC CONTINUED.
[2020-04-26 08:28] LABS: ABSOLUTE NEUTROPHILS 5.8 thou/uL (1.4-8.2); BASOPHILS 0.7 % (0.0-2.0); EOSINOPHILS 0.5 % (0.0-3.0); HEMATOCRIT 46.5 % (37.0-47.0); HEMOGLOBIN 15.4 gm/dL (12.0-15.0); LYMPHOCYTES 23.7 % (24.0-44.0); MCH 31.2 pg (26.0-34.0); MCHC 33.2 g/dL (28.0-37.0); MCV 94.3 fL (80.0-100.0); MONOCYTES 12.4 % (1.0-8.0); PLATELET COUNT 259 thou/uL (150-400); POLYS 62.7 % (36.0-66.0); RBC 4.94 mil/uL (4.20-5.00); RDW 13.6 % (10.5-14.5); WBC 9.3 thou/uL (4.0-11.0)
[2020-04-26 08:48] LABS: CALCIUM 9.7 mg/dL (8.5-10.1); CREATININE 1.1 mg/dL (0.6-1.0); POTASSIUM 4.9 mmol/L (3.5-5.1)
--- NOTE | 2020-04-26 11:14 | 2DMMODE ---
[facility] [place] [address] 2 D/M-MODE ECHOCARDIOGRAM Name: VANDANA HERNANDEZ Room #: 200-I ADM IN M.R.#: [id number] Admission: 04/24/20 Attend Phys: Jessica Li Discharge: Date of : 71 Report #: [id number] THIS REPORT FOR: cc: Ck Vogel MD, Ramilo MD Santiago, Patrick MD [facility] ~ APPROVED REPORT Study performed: 04/26/2020 08:29:35 EXAM: Comprehensive 2D, Doppler, and color-flow Echocardiogram Patient Location: ICU Room #: 200 BSA: 1.46 HR: 88 bpm BP: 103/72 mmHg Rhythm: Atrial Fibrillation Other Information Study Quality: Good Indications CVA/TIA Atrial Fibrillation 2D Dimensions IVSd: 15.75 (7-11mm) LVOT Diam: 15.92 (18-24mm) LVDd: 29.85 mm PWd: 16.09 (7-11mm) LVDs: 24.50 (25-40mm) Left Atrium: 28.98 (27-40mm) Aortic Root: 24.65 mm Volumes Left Atrial Volume (Systole) Single Plane 4CH: 24.52 mL LA ESV Index: 23.00 mL/m2 Aortic Valve AoV Peak Uday.: 1.09 m/s AO Peak Gr.: 4.75 mmHg LVOT Max P.44 mmHg AO Mean Gr.: 3.42 mmHg LVOT Mean P.38 mmHg AO V2 Mean: 0.91 m/s LVOT Max V: 0.78 m/s [facility] [address] [address] 2 D/M-MODE ECHOCARDIOGRAM Name: VANDANA HERNANDEZ Room #: 200-I [facility].#: [id number] Admission: 04/24/20 Attend Phys: Jessica Kwan Discharge: Date of : 71 Report #: [id number] AO V2 VTI: 18.80 cm LVOT Mean V: 0.55 m/s FIDE (VTI): 1.25 cm2 LVOT V1 VTI: 11.83 cm FIDE Vmax: 1.42 cm2 SV (LVOT): 23.52 mL Mitral Valve MV Peak Gr.: 2.42 mmHg MV Mean Gr.: 0.86 mmHg E/A Ratio: 7.0 MV Decel. Time: 164.55 ms MV E Max Uday.: 0.63 m/s MV A Uday.: 0.09 m/s MV Max Uday.: 0.78 m/s MV Mean Uday.: 0.42 m/s MV VTI: 170.53 mm MVA VTI: 137.95 mm2 MV PHT: 47.72 ms MVA (PHT): 2.35 cm2 Pulmonary Valve PV Peak Uday.: 0.65 m/s PV Peak Gr.: 1.71 mmHg KS End Vmax: 1.11 m/s Pulmonary Vein P Vein S: 0.31 m/s P Vein D: 0.43 m/s P Vein S/D Ratio: 0.72 Tricuspid Valve TR Peak Uday.: 1.21 m/s TR Peak Gr.: 5.90 mmHg RVSP: 15.00 mmHg Left Ventricle The left ventricle is normal size. Severe concentric left ventricular hypertrophy. Left ventricular systolic function is severely decreased. LVEF is 35-40%. Grade IV - fixed restrictive diastolic dysfunction. Right Ventricle The right ventricle is normal size. Right ventricular systolic function is mildly reduced. Atria The left atrium size is normal. The right atrium size is normal. Aortic Valve [facility] [address] [address] 2 D/M-MODE ECHOCARDIOGRAM Name: VANDANA HERNANDEZ Room #: 200-I [facility] IN M.R.#: [id number] Admission: 04/24/20 Attend Phys: Jessica Kwan Discharge: Date of : 71 Report #: [id number] The aortic valve is normal in structure. No aortic regurgitation is present. There is no aortic valvular stenosis. Mitral Valve The mitral valve is normal in structure. There is no mitral valve regurgitation noted. No evidence of mitral valve stenosis. Tricuspid Valve The tricuspid valve is normal in structure. Trace to mild tricuspid regurgitation. Pulmonic Valve The pulmonary valve is normal in structure. Mild pulmonic regurgitation. Great Vessels The aortic root is normal in size. IVC is normal in size and collapses >50% with inspiration. Pericardium Mild circumferential pericardial effusion. <Conclusion> Normal left ventricle size Severe LVH EF 35-40% global hypokinesis Normal right ventricle size with mild hypokinesis Grade 4 diastolic function/restrictive pattern Normal atrial size Color-flow Doppler study was performed of the aortic/mitral/tricuspid/pulmonary valve Normal aortic/mitral valve structure and function Mild tricuspid valve insufficiency Trace pericardial effusion <ELECTRONICALLY SIGNED> By: Liam Vital MD, FACC 04/26/20 1114 1114 111 Liam Vital MD, FACC /INF
[2020-04-26 11:30] VITALS: BP 93/75
--- NOTE | 2020-04-26 12:28 | NUR ---
Case opened to follow for dc planning. 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 She has lived there for several years due to CVA. Case discussed with their liason. They are holding her bed and note she normally functions at a w/c level and is able to self propel. Her dtr [place] is her primary family contact. They are checking to see if they have a dpoa on file. They can accept her for readmission when medically stable and are holding her bed. She has recently had covid and had her first covid +test on 03-27-20. She is out of ISO and being treated for NSTEMI/CHF. Message left for the pt's dtr. DC automatic data processing planner has updated [facility]. Will follow along and assist with her return to SNF as indicated.
--- NOTE | 2020-04-26 16:29 | NUR ---
AWAKE, ALERT. COMMUNICATION STYMIED BY HER EXPRESSIVE APHASIA. AFIB PER TELE. OT ASSISTS TO BEDSIDE CHAIR, WHERE SHE HAS BEEN MOST OF THE DAY. FALL PRECAUTIONS IN PLACE.
--- NOTE | 2020-04-26 16:34 | NUR ---
FAXED CLINICAL UPDATE TO [facility] RECEIVED CONFIRMATION AND LEFT MSG WITH MIGEL IN ADM.
[2020-04-26 19:48] VITALS: BP 114/67
--- NOTE | 2020-04-27 03:12 | NUR ---
ASSUME CARE 1900. PT/VITALS STABLE. NO PAIN NOTED. A/O TO PERSON. EXPRESSIVE APHASIA NOTED. DIFFICULT TO UNDERSTAND LOC DUE TO POOR COMMUNICATION. ASSESSMENT CHARTED. NO DISTRESS NOTED. AFIB ON MONITOR WITH CONTROLLED HR. PROGRESSING SLOWLY WITH POC. PLAN IS POSSIBLE DISCHARGE BACK TO ALF FOR CONTINUM OF CARE. WILL CONTINUE TO MONITOR AND FOLLOW WITH POC
[2020-04-27 04:46] VITALS: BP 92/60
[2020-04-27 07:00] VITALS: BP 89/54
[2020-04-27 12:20] VITALS: BP 147/126
[2020-04-27 15:20] LABS: HEMATOCRIT 42.6 % (37.0-47.0); HEMOGLOBIN 14.4 gm/dL (12.0-15.0); MCH 30.8 pg (26.0-34.0); MCHC 33.7 g/dL (28.0-37.0); MCV 91.4 fL (80.0-100.0); RBC 4.66 mil/uL (4.20-5.00); RDW 13.3 % (10.5-14.5); WBC 5.7 thou/uL (4.0-11.0)
[2020-04-27 15:28] LABS: CALCIUM 9.8 mg/dL (8.5-10.1); CREATININE 0.7 mg/dL (0.6-1.0); POTASSIUM 4.5 mmol/L (3.5-5.1)
[2020-04-27 16:00] VITALS: BP 71/49
[2020-04-27 19:35] VITALS: BP 91/56
[2020-04-28 04:00] VITALS: BP 97/58
[2020-04-28 05:19] LABS: HEMATOCRIT 43.6 % (37.0-47.0); HEMOGLOBIN 14.4 gm/dL (12.0-15.0); MCH 30.8 pg (26.0-34.0); MCV 93.1 fL (80.0-100.0); RBC 4.68 mil/uL (4.20-5.00); RDW 13.3 % (10.5-14.5); WBC 6.1 thou/uL (4.0-11.0)
--- NOTE | 2020-04-28 05:25 | NUR ---
ASSUME CARE 1900. PT/VITALS STABLE. BP RUNS SOFT. PT ANSWERS YES OR NO QUESTIONS TO TRY TO COMMUNICATE NEEDS. PT SEEMS TO BE ORIENTED BUT HAS SEVERE EXPRESSIVE APHASIA, MAKING IT HARD TO UNDERSTAND LEVEL OF CONCIOUSNESS. AFIB ON MONITOR WITH HR CONTROLLED. ASSESSMENT CHARTED. PROGRESSING WELL WITH POC. PLAN IUS POSSIBLE DISCHARGE TO FACILITY TODAY. WILL CONTINUE TO MONITOR AND FOLLOW WITH POC
[2020-04-28 05:33] LABS: CALCIUM 9.9 mg/dL (8.5-10.1); CREATININE 1.2 mg/dL (0.6-1.0); POTASSIUM 4.2 mmol/L (3.5-5.1)
[2020-04-28 08:40] VITALS: BP 105/70
--- NOTE | 2020-04-28 10:49 | NUR ---
WOUND CONSULT; THIS PATIENT WAS DX WITH [facility] ON 03/27/20. SHE HAS EXPRESSIVE APHASIA. THE PATIENT HAD ALTERED MENTAL STATUS CHANGES RELATED TO TRAUMA TO HER FORHEAD. THERE IS SIGNIFICANT BUMP ON THE HEAD. AN INJURY TO THE SACRUM/COCCYX AREAS RE;PRESSURE. THERE IS A SMALL STAGE 2. NO ODOR,SCANT DRAINAGE. RECOMMENDATIONS; -ADD A LOW AIRLOSS BED PUMP. -TURN PATIENT Q2H -APPLY A BORDER FOAM TO THE SACRUM/COCCYX.
[2020-04-28 12:18] VITALS: BP 81/60
--- NOTE | 2020-04-28 13:59 | NUR ---
FAXED CLINICAL UPDATE TO [facility] RECEIVED CONFIRMATION AND LEFT MSG WITH MIGEL IN ADM.
--- NOTE | 2020-04-28 14:16 | HC ---
[facility] [place] [address] [place] [address] CONSULTATION Name: VANDANA HERNANDEZ Room #: 200-I ADM IN M.R.#: [id number] Admission: 04/24/20 Attend Phys: Jesisca Li Discharge: Date of : 71 Report #: [id number] THIS REPORT FOR: cc: Ck Vogel MD, Ramilo MD Couchonnal,Wade Shepherd MD ~ DATE OF SERVICE: 04/25/2020 CARDIOLOGY CONSULTATION REASON FOR CONSULTATION: Elevated troponin. HISTORY OF PRESENT ILLNESS: The patient is a 44-year-old female with history of AFib, atrial flutter, on Eliquis as well as prior CVA with left-sided hemiparesis, seizure disorders, echocardiogram on 03/2019 showing an EF of 35-40%, who lives in a care facility. She was brought here because of altered mental status. Of note, she was COVID positive on 03/27/2020. Speaking with the patient, she is pretty lethargic, but she denies any chest pain. She denies any shortness of breath. She denies PND or orthopnea. She denies any syncopal episodes. REVIEW OF SYSTEMS: A 12-point review of systems was performed and was negative other than what I mentioned above. PAST MEDICAL HISTORY: 1. Atrial fibrillation/atrial flutter. 2. Cerebrovascular accident with left hemiparesis. 3. Seizure disorder. 4. Echocardiogram 03/2019, EF 35-40%. 5. COVID positive, 03/27/2020. 6. Hypertension. 7. Hyperlipidemia. SOCIAL HISTORY: Does not smoke. Lives in a retirement. FAMILY HISTORY: Noncontributory. ALLERGIES: No known drug allergies. MEDICATIONS: Multivitamin, magnesium, ____, Lexapro, diltiazem 240, vitamin D, aspirin, vitamin C, Lasix 40 IV b.i.d., baclofen, Keppra, Depakote, atorvastatin, apixaban, tizanidine, Zofran, aspirin. PHYSICAL EXAMINATION: VITAL SIGNS: Temperature is 36.2, ____, blood pressure 79/52, sats 100%. [facility] [address] [place] [address] CONSULTATION Name: VANDANA HERNANDEZ Room #: 200-I [facility] IN [facility].#: [id number] Admission: 04/24/20 Attend Phys: Jessica Li Discharge: Date of : 71 Report #: [id number] GENERAL: The patient is somewhat lethargic, but in no respiratory distress. HEENT: Oropharynx is clear. Sclerae are anicteric. NECK: Supple. HEART: Irregularly irregular, but not tachycardic. There are no murmurs. There is no JVD. LUNGS: Clear bilaterally. ABDOMEN: Soft, nontender, nondistended with no hepatosplenomegaly. EXTREMITIES: There is no clubbing, cyanosis or edema. Pulses are 1+ throughout. NEUROLOGIC: Cranial nerves 2-12 are grossly intact and she has left-sided weakness, but moves her right-sided with no issues. IMAGING STUDIES: Her EKG shows atrial fibrillation with a controlled ventricular response and no ischemic changes. Her chest x-ray shows enlarged cardiac silhouette, but no evidence of pulmonary edema or infiltrates on my review. Her CT head shows no acute process. LABORATORY DATA: Sodium 142, potassium 4.5, BUN 39, creatinine 1.0. Troponin is 0.12. ProBNP is 10,000. LDL 119. Hemoglobin 16, white count 8, platelets 285. Blood cultures are pending. ASSESSMENT: 1. Elevated troponin. 2. History of dilated cardiomyopathy, possible heart failure. 3. Possible early sepsis. 4. Atrial fibrillation, atrial flutter. 5. Prior cerebrovascular accident. 6. Prior seizure disorders. 7. Hypotension. HISTORY: The patient is a 44-year-old presenting with altered mental status. My concerns as this may be due to an infection. She does have a slight elevated troponin, but has no chest pain and no ischemic changes on EKG. We will recommend an echo in the morning. I do not think she is overtly volume overloaded at this time and is somewhat hypotensive. We will discontinue diuretics at this time. She should be started on empiric antibiotics for possible early sepsis. We will continue to follow. <ELECTRONICALLY SIGNED> By: Wade Jaramillo MD 04/28/20 1416 [id number] Wade Jaramillo MD /nt
[2020-04-28 16:39] VITALS: BP 111/56
--- NOTE | 2020-04-28 18:46 | NUR ---
PT IS ALERT AND ORIENTED TO SELF AND SITUATION. PT HAS EXPRESSIVE DYSPHAGIA. THERE IS SOME DIFFICULTY UNDERSTANDING PT, BUT SHE REPEATS HERSELF TO ALLOW NURSE TO UNDERSTAND. PT HAS LEFT SIDED HEMIPARESIS. PT/OT/SPEECH CONSULTED. PT IS ON NECTAR THICK DIET, AND TAKES PILLS WITH APPLE SAUCE OR PUDDING. WOUND DOCTOR CONSULTED FOR COCCYX WOUND. PT HAS HAD LOW BP THROUGH OUT THE DAY. CASE MGMT CONSULTED. POC IS TO DISCHARGE TO [facility]. FALL PRECAUTIONS IN PLACE. NO CONCERNS AT THIS TIME.
[2020-04-28 19:42] VITALS: BP 85/57
[2020-04-29] VITALS (7 sets, daily range): BP systolic 77–119; BP diastolic 52–83
[2020-04-29 05:44] LABS: CALCIUM 9.4 mg/dL (8.5-10.1); CREATININE 0.9 mg/dL (0.6-1.0); MAGNESIUM 1.8 mg/dL (1.8-2.4); POTASSIUM 4.6 mmol/L (3.5-5.1)
[2020-04-29 06:04] LABS: HEMATOCRIT 39.6 % (37.0-47.0); MCH 30.5 pg (26.0-34.0); MCV 92.6 fL (80.0-100.0); RBC 4.27 mil/uL (4.20-5.00); RDW 13.4 % (10.5-14.5); WBC 7.4 thou/uL (4.0-11.0)
--- NOTE | 2020-04-29 06:15 | NUR ---
PATIENTS CARES WERE ASSUMED AT SHIFT CHANGE. PATIENT WAS ASSESSED AND MEDS WERE PASED. PATIENT DID SLEEP MOST OF THIS SHIFT. ROUNDING WAS DONE, THE BED IS IN A LOW AND LOCKED POSITION
--- NOTE | 2020-04-29 18:32 | NUR ---
PATIENT IS ALERT TO SELF. PATIENT IS HARD TO UNDERSTAND, MOUTHS AND REPEATS WORDS. FALL PRECAUTIONS ARE IN PLACE. PT HAS CATH. ON NECTOR DIET. TAKES MEDS WITH PUDDING. AFIB ON THE MONITOR, CONTROLLED. FALL PRECAUTIONS IN PLACE. ASSESSMENTS CHARTED. CONTINUING TO ASSESS ACCORDING TO POC.
[2020-04-30 03:56] VITALS: BP 92/51
[2020-04-30 07:10] VITALS: BP 84/61
--- NOTE | 2020-04-30 08:24 | NUR ---
ASSUMED CARE OF THE PATIENT AT 1900; AOX2; EXPRESSIVE APHASIA/VOICED NEEDS AND WANTS APPROPRIATELY; AFIB/PVCs/TIFF AT TIMES ON MONITOR; BP ON LOW SIDE; HX OF COVID +; PLAN IS FOR PATIENT TO D/C TO IGNITE SOON; WILL CONTINUE TO MONITOR AND FOLLOW POC
[2020-04-30 08:45] LABS: CALCIUM 9.3 mg/dL (8.5-10.1); CREATININE 0.7 mg/dL (0.6-1.0); MAGNESIUM 1.7 mg/dL (1.8-2.4); POTASSIUM 4.6 mmol/L (3.5-5.1)
[2020-04-30 08:50] LABS: HEMATOCRIT 36.5 % (37.0-47.0); HEMOGLOBIN 12.5 gm/dL (12.0-15.0); MCH 31.1 pg (26.0-34.0); MCHC 34.2 g/dL (28.0-37.0); MCV 90.9 fL (80.0-100.0); RBC 4.01 mil/uL (4.20-5.00); RDW 13.2 % (10.5-14.5); WBC 6.1 thou/uL (4.0-11.0)
[2020-04-30 11:10] VITALS: BP 81/51
[2020-04-30] MEDS ORDERED: LORAZEPAM 0.50.5 MG PO (11:26)
[2020-04-30] MEDS ORDERED: VITAMIN D325 MC1 PO (11:27)
[2020-04-30] MEDS ORDERED: AUGMENTIN 875-1 EACH PO (11:28)
--- NOTE | 2020-04-30 12:29 | NUR ---
ASSUMED CARE OF PT AT SHIFT CHANGE. ASSESSMENT CHARTED. MEDS GIVEN PER JUN. PT AWAKE, HARD TO ASSESS ORIENTATION PT'S SPEECH IS VERY DIFFICULT TO UNDERSTAND. NO APPARENT PAIN OR DISTRESS. PT BECAME AGITATED WHEN TOLD OF THE DISCHARGE. DISCHARGE ORDERS COMPLETE. JAZMINE REBOLLEDO AND TELE DC'D. PT TRANSPORTED TO FACILITY VIA WHEELCHAIR VAN.
--- NOTE | 2020-04-30 14:29 | NUR ---
Pt dcing back to SNF at [facility]. They can accept her back skilled for rehab and will then transition her back to LTC as appropriate. Their van arranged for noon to 1pm pickup time. Pt and dtr notified. Chart copy ready to be sent with the pt. Dc order planner faxed orders and nursing called report. Case closed.
== END 2020-04-30 13:05 | DRG 871 ==
LOC: ER 16:56 → 2N 19:38 → EROBS 19:38 → 2N 04-25 17:10 → EROBS 04-25 17:26 → 2N 04-26 11:05
PROVIDERS: Hospitalist; Internal Medicine; Nurse Practitioner Family; Physician Assistant; ADMIT Hospitalist; ATTEND Hospitalist
DX: A41.9 Sepsis, unspecified organism (principal); I50.23 Acute on chronic systolic (congestive) heart failure; L89.153 Pressure ulcer of sacral region, stage 3; N17.0 Acute kidney failure with tubular necrosis; I42.0 Dilated cardiomyopathy; I48.92 Unspecified atrial flutter; I31.3 Pericardial effusion (noninflammatory); E44.0 Moderate protein-calorie malnutrition; I69.354 Hemiplegia and hemiparesis following cerebral infarction affecting left non-dominant side; Z68.1 Body mass index [BMI] 19.9 or less, adult; I11.0 Hypertensive heart disease with heart failure; I48.91 Unspecified atrial fibrillation; K59.00 Constipation, unspecified; E78.5 Hyperlipidemia, unspecified; S00.83XA Contusion of other part of head, initial encounter; S00.81XA Abrasion of other part of head, initial encounter; R13.10 Dysphagia, unspecified; G40.909 Epilepsy, unspecified, not intractable, without status epilepticus; Z86.16 Personal history of COVID-19; I95.9 Hypotension, unspecified; D50.9 Iron deficiency anemia, unspecified; Z79.899 Other long term (current) drug therapy; I69.322 Dysarthria following cerebral infarction; I69.320 Aphasia following cerebral infarction; Z79.82 Long term (current) use of aspirin; W18.39XA Other fall on same level, initial encounter; Y93.89 Activity, other specified; Y92.89 Other specified places as the place of occurrence of the external cause; Y99.8 Other external cause status
CPT/HCPCS: 10081